=== PATIENT | male | born 1945 | race Two or more races ===

== ENCOUNTER 2023-05-30 16:09 | Emergency (ER) | payer MEDICARE, OTHER ==
[~2023-05-30] VITALS: Ht 177.8 cm; Wt 99.8 kg
[2023-05-30 16:37] LABS: BASOPHILS ABSOLUTE AUTO 0.07 K/mm3 (0.00-0.23); BASOPHILS PERCENT AUTO 1 % (0-2); EOSINOPHILS ABSOLUTE AUTO 0.02 K/mm3 (0.00-0.68); EOSINOPHILS PERCENT AUTO 0 % (0-6); Hematocrit 37.7 % (37.0-53.0); Hemoglobin 12.8 g/dL (13.5-17.5); IMMATURE GRAN ABSOLUTE AUTO 0.04 K/mm3 (0.00-0.10); IMMATURE GRAN PERCENT AUTO 1 % (0-1); LYMPHOCYTES ABSOLUTE AUTO 1.45 K/mm3 (0.84-5.20); LYMPHOCYTES PERCENT AUTO 18 % (21-46); MONOCYTES ABSOLUTE AUTO 0.47 K/mm3 (0.16-1.47); MONOCYTES PERCENT AUTO 6 % (4-13); Mean Corpuscular HGB 30.3 pg (26.0-34.0); Mean Corpuscular Volume 89 fL (80-100); Mean Platelet Volume 8.9 fL (9.1-12.4); NEUTROPHILS PERCENT AUTO 75 % (41-73); Platelet Count 256 K/mm3 (150-400); RDW Coefficient Variation 18.4 % (11.7-14.2); RDW Standard Deviation 59.5 fL (35.1-46.3); Red Blood Cell Count 4.23 M/mm3 (4.30-5.90); White Blood Cell Count 8.25 K/mm3 (4.00-11.30)
[2023-05-30 16:50] LABS: Albumin, Blood 2.7 g/dL (3.4-5.0); Albumin/Globulin Ratio 0.6 (0.8-1.8); Bilirubin, Total 0.6 mg/dL (0.1-1.0); Bun/Creatinine Ratio 22.4 (12.0-20.0); Calcium, Blood 8.6 mg/dL (8.5-10.1); Creatinine, Blood 0.54 mg/dL (0.60-1.20); Globulin, Blood 4.7 g/dL (2.2-4.0); Potassium, Blood 3.2 mmol/L (3.5-5.5); Total Protein, Blood 7.4 g/dL (6.4-8.2)
[2023-05-30] MEDS ORDERED: FAMO20 PO (19:03)
[2023-05-30] MEDS ORDERED: ONDA4ODT MM (19:03)
[2023-05-30] MEDS ORDERED: METO10 PO (19:04)
[2023-05-30 19:47] VITALS: BP 135/74
== END 2023-05-30 19:49 | disposition home or self-care (01) ==
LOC: ER 16:09
PROVIDERS: Student in an Organized Health Care Education/Training Program
DX: R07.9 Chest pain, unspecified (principal); R10.13 Epigastric pain; E87.6 Hypokalemia; R11.2 Nausea with vomiting, unspecified; I45.10 Unspecified right bundle-branch block; D64.9 Anemia, unspecified; E11.9 Type 2 diabetes mellitus without complications; I10 Essential (primary) hypertension
CPT/HCPCS: 71046; 80053; 83690; 83880; 84484; 85025; 93005; 93010; 96374; 96375; 99285-25; A9270; C9113; J2405; J2765

== ENCOUNTER → 2024-10-22 | Outpatient (CLI) | payer MEDICARE, OTHER ==
[~2024-10-22] MED LIST: FAMO20 PO; METO10 PO; ONDA4ODT MM
[2024-10-22 19:14] LABS: BASOPHILS ABSOLUTE AUTO 0.04 K/mm3 (0.00-0.23); BASOPHILS PERCENT AUTO 1 % (0-2); EOSINOPHILS ABSOLUTE AUTO 0.07 K/mm3 (0.00-0.68); EOSINOPHILS PERCENT AUTO 1 % (0-6); Hematocrit 40.4 % (37.0-53.0); Hemoglobin 12.9 g/dL (13.5-17.5); IMMATURE GRAN ABSOLUTE AUTO 0.03 K/mm3 (0.00-0.10); IMMATURE GRAN PERCENT AUTO 0 % (0-1); LYMPHOCYTES ABSOLUTE AUTO 1.03 K/mm3 (0.84-5.20); LYMPHOCYTES PERCENT AUTO 13 % (21-46); MONOCYTES ABSOLUTE AUTO 0.51 K/mm3 (0.16-1.47); MONOCYTES PERCENT AUTO 7 % (4-13); Mean Corpuscular HGB 26.9 pg (26.0-34.0); Mean Corpuscular HGB Conc 31.9 g/dL (31.5-36.5); Mean Corpuscular Volume 84 fL (80-100); Mean Platelet Volume 9.6 fL (9.1-12.4); NEUTROPHILS ABSOLUTE AUTO 5.99 K/mm3 (1.96-9.15); NEUTROPHILS PERCENT AUTO 78 % (41-73); Platelet Count 434 K/mm3 (150-400); RDW Standard Deviation 49.5 fL (35.1-46.3); White Blood Cell Count 7.67 K/mm3 (4.00-11.30)
[2024-10-22 19:33] LABS: Alanine Aminotransfer (ALT/SGP 20 U/L (12-78); Albumin, Blood 2.9 g/dL (3.4-5.0); Albumin/Globulin Ratio 0.5 (0.8-1.8); Alk Phos 102 U/L (50-136); Anion Gap 13 mmol/L (3-11); Aspartate Aminotrans (AST/SGOT 22 U/L (12-37); Bilirubin, Total 0.5 mg/dL (0.1-1.0); Blood Urea Nitrogen 15 mg/dL (8-24); Bun/Creatinine Ratio 24.3 (12.0-20.0); CHOL/HDL RATIO 3.4; CO2, Blood 27 mmol/L (21-32); Calcium, Blood 9.3 mg/dL (8.5-10.1); Chloride, Blood 99 mmol/L (98-108); Cholesterol 158 mg/dL (50-200); Creatinine, Blood 0.62 mg/dL (0.60-1.20); Globulin, Blood 5.5 g/dL (2.2-4.0); Glomerular Filtration Rate 97 (60-); Glucose, Blood 101 mg/dL (70-99); HDL Cholesterol 46 mg/dL (>39); LDL/HDL RATIO 2.1; Low Density Lipoprotein Chol 96 mg/dL (0-110); Potassium, Blood 4.5 mmol/L (3.5-5.5); Sodium, Blood 134 mmol/L (136-145); Total Protein, Blood 8.4 g/dL (6.4-8.2); Triglycerides 81 mg/dL (30-160); Very Low Density Lipoprot Chol 16 mg/dL (6-32)
== END ==
LOC: LAB SHORT 08:45 → LAB 08:45
PROVIDERS: Nurse Practitioner Family
DX: E78.5 Hyperlipidemia, unspecified (principal); I10 Essential (primary) hypertension
CPT/HCPCS: 80053; 80061; 85025

== ENCOUNTER 2024-12-21 19:55 | Inpatient (IN) | payer MEDICARE, OTHER ==
[~2024-12-21] VITALS: Ht 170.2 cm; Wt 87.5 kg
[2024-12-21] MEDS ORDERED: Lactated Ringer's 1,000 ML IV ONE (20:20)
[2024-12-21 20:25] LABS: BASOPHILS ABSOLUTE AUTO 0.04 K/mm3 (0.00-0.23); BASOPHILS PERCENT AUTO 1 % (0-2); EOSINOPHILS ABSOLUTE AUTO 0.13 K/mm3 (0.00-0.68); EOSINOPHILS PERCENT AUTO 2 % (0-6); Hematocrit 38.4 % (37.0-53.0); Hemoglobin 13.3 g/dL (13.5-17.5); IMMATURE GRAN ABSOLUTE AUTO 0.06 K/mm3 (0.00-0.10); IMMATURE GRAN PERCENT AUTO 1 % (0-1); LYMPHOCYTES ABSOLUTE AUTO 1.25 K/mm3 (0.84-5.20); LYMPHOCYTES PERCENT AUTO 16 % (21-46); MONOCYTES ABSOLUTE AUTO 0.67 K/mm3 (0.16-1.47); MONOCYTES PERCENT AUTO 8 % (4-13); Mean Corpuscular HGB 26.2 pg (26.0-34.0); Mean Corpuscular HGB Conc 34.6 g/dL (31.5-36.5); Mean Corpuscular Volume 76 fL (80-100); Mean Platelet Volume 8.8 fL (9.1-12.4); NEUTROPHILS ABSOLUTE AUTO 5.87 K/mm3 (1.96-9.15); NEUTROPHILS PERCENT AUTO 73 % (41-73); Platelet Count 304 K/mm3 (150-400); RDW Coefficient Variation 16.4 % (11.7-14.2); RDW Standard Deviation 44.3 fL (35.1-46.3); Red Blood Cell Count 5.08 M/mm3 (4.30-5.90); White Blood Cell Count 8.02 K/mm3 (4.00-11.30)
[2024-12-21 20:57] LABS: Albumin, Blood 2.3 g/dL (3.4-5.0); Albumin/Globulin Ratio 0.5 (0.8-1.8); Bilirubin, Total 0.9 mg/dL (0.1-1.0); Bun/Creatinine Ratio 22.3 (12.0-20.0); Calcium, Blood 8.7 mg/dL (8.5-10.1); Creatinine, Blood 0.58 mg/dL (0.60-1.20); Globulin, Blood 4.7 g/dL (2.2-4.0); Potassium, Blood 2.9 mmol/L (3.5-5.5)
[2024-12-21 21:29] LABS: Source, Urine Straight Cath
[2024-12-21 21:36] LABS: Appearance, Urine Clear (Clear); Bilirubin, Urine Neg (Neg); Blood, Urine 2+ (Neg); Color, Urine Yellow (P-Yellow); Glucose Qualitative, Urine Neg (Neg); Ketones, Urine 1+ (Neg); Leukocyte Esterase, Urine 1+ (Neg); Nitrite, Urine Neg (Neg); Protein, Urine 2+ (Neg); Specific Gravity, Urine 1.015 (1.003-1.022); Urobilinogen, Urine NORM (Normal)
[2024-12-21 21:50] LABS: Free Thyroxine 1.93 ng/dL (0.70-1.60); Magnesium, Blood 1.5 mg/dL (1.6-2.4)
[2024-12-21 22:01] LABS: Bacteria Mod /hpf; Red Blood Cells, Urine 0-2 /hpf (0-2); Squamous Epithelial Cells Few /hpf (Few)
[2024-12-21 22:16] LABS: Thyroid Stimulating Hormone 3.17 uIU/mL (0.360-4.800)
[2024-12-21] MEDS ORDERED: Potassium Chloride 40 MEQ in NS 250 ML IV ONE (22:25)
[2024-12-21] MEDS ORDERED: CefTRIAXone Sodium 2,000 MG in NS 100 ML IV ONE (22:35)
[2024-12-22] VITALS (26 sets, daily range): BP systolic 80–127; BP diastolic 50–89
[2024-12-22] MEDS ORDERED: Acetaminophen 650 MG Supp PR PRN (00:20)
[2024-12-22] MEDS ORDERED: Mag Sulfate 1 GM/D5% 100ML 100 ML IV STA (00:25)
[2024-12-22] MEDS ORDERED: Acetaminophen 325 MG TABLET PO PRN (00:25)
[2024-12-22 00:33] LABS: Bun/Creatinine Ratio 23.8 (12.0-20.0); Calcium, Blood 8.3 mg/dL (8.5-10.1); Creatinine, Blood 0.55 mg/dL (0.60-1.20); Potassium, Blood 2.9 mmol/L (3.5-5.5)
[2024-12-22] MEDS ORDERED: Sodium Chloride 3% 500 ML IV SCH (01:15)
[2024-12-22 03:49] LABS: Triiodothyronine, Free 2.63 pg/mL (2.18-3.98)
[2024-12-22] MEDS ORDERED: TRIAMCINOLON (04:03)
[2024-12-22] MEDS ORDERED: Clotrimazole-Be15 GM (04:04)
[2024-12-22 05:11] LABS: Percent Saturation 28.6 % (20.0-50.0)
[2024-12-22 05:13] LABS: Bun/Creatinine Ratio 20.6 (12.0-20.0); Calcium, Blood 7.9 mg/dL (8.5-10.1); Creatinine, Blood 0.63 mg/dL (0.60-1.20); Potassium, Blood 3.3 mmol/L (3.5-5.5)
[2024-12-22] MEDS ORDERED: Potassium Chloride 40 MEQ in NS 250 ML IV ONE (05:25)
[2024-12-22] MEDS ORDERED: NS 500 ML IV ONE (05:25)
--- NOTE | 2024-12-22 06:37 | NUR ---
SHIFT SUMMARY: PT ARRIVED TO ICU 13 AT 0342 THIS MORNING. PT ACCOMPANIED BY SON. PT ORIENTED TO SELF, COMMUNICATING IN INUPIAT LANGUAGE (LEOPOLDO) W/SON. PT DOES NOT SPEAK [place]. PT CONFUSED, PER SON, HE BELIEVES HE IS AT HOME. ON ARRIVAL, PT ATTEMPTED TO GET OUT OF BED, PULLING AT CORDS. HE WAS EASILY RE-DIRECTABLE BY SON WHO REASSURED HIM. PT ADMITTED FOR HYPONATREMIA, SODIUM OF 117. ON ARRIVAL PT HAD 3% NACL INFUSING AT 30ML/HR. PERIPHERAL IV CHECKED, PATENT AND BLOOD RETURN OBSERVED. INFUSION CONTINUED. PT MOVES ALL EXTREMITIES INDEPENDENTLY. FOLLOWS COMMANDS. HR SINUS, 60-80S. SBP SOFT. MAPS INITIALLY >65, SHORTLY AFTER ARRIVAL, MAP STARTED DROPPING BELOW 65. LABS RESULTED WELL. K+ 3.3. SODIUM 120. DR ZAMBRANO CALLED. ORDERS OBTAINED- SEE EMAR. INTERVENTIONS WERE IMPLEMENTED AND PTS SBP AND MAPS WERE RECEPTIVE TO INTERVENTIONS. LUNGS CLEAR. PT ON RA W/ SATS >93%. PER SON, PT DOES NOT USE OXYGEN AT HOME. PT LAST BM UNKNOWN. BOWEL TONES HYPOACTIVE X4. ABD MOD DISTENDED, NONTENDER ON PALPATION. CORBETT CATH IN PLACE,PATENT, DRAINING YELLOW URINE TO GRAVITY. PT HAS TWO PERIPHERAL IVS IN MENG AND RHAND. K+ INFUSING AT THIS TIME. THIS RN TO CONTINUE TO MONITOR AND REPORT TO ONCOMING RN.
[2024-12-22] MEDS ORDERED: NS 1,000 ML IV SCH (08:25)
[2024-12-22 08:43] LABS: Bun/Creatinine Ratio 20.5 (12.0-20.0); Calcium, Blood 8.4 mg/dL (8.5-10.1); Creatinine, Blood 0.58 mg/dL (0.60-1.20); Potassium, Blood 3.5 mmol/L (3.5-5.5)
[2024-12-22] MEDS ORDERED: Tamsulosin HCl 0.4 MG Cap PO SCH (09:00)
[2024-12-22] MEDS ORDERED: Enoxaparin 40 MG/0.4 ML SYR SC SCH (09:00)
[2024-12-22] MEDS ORDERED: Lactobacil 2-S.Thermo-Bifido 1 1 Cap PO SCH (09:00)
[2024-12-22 13:46] LABS: Bun/Creatinine Ratio 18.5 (12.0-20.0); Calcium, Blood 8.6 mg/dL (8.5-10.1); Creatinine, Blood 0.59 mg/dL (0.60-1.20); Potassium, Blood 3.6 mmol/L (3.5-5.5)
[2024-12-22] MEDS ORDERED: Thiamine HCl 500 MG in NS 100 ML IV SCH (16:27)
--- NOTE | 2024-12-22 17:36 | NUR ---
SHIFT SUMMARY NO ACUTE CHANGES THIS SHIFT. PT HAS REMAINED CONFUSED AND WITH NONSENSICAL SPEECH WHEN AWAKE PER PT GRANDSON. PT GRANDSON AT BEDSIDE THROUGHOUT THE SHIFT. PT HAS DENIED PAIN OR DISCOMFORT. VITAL SIGNS STABLE. PT ON ROOM AIR. PIV'S IN PLACE WITH NS INFUSING TKO AT THIS TIME. CORBETT REMAINS IN PLACE WITH LARGE AMOUNT OF CLEAR YELLOW URINE OUTPUT NOTED. SBW RESTRAINTS REMAIN IN PLACE, PT CONTINUES TO BE NOT REDIRECTABLE WHEN PULLING AT LINES/TUBES AND ATTEMPTING OOB. WILL CONTINUE TO MONITOR AND REPORT OFF TO ONCOMING RN.
[2024-12-22] MEDS ORDERED: NS 250 ML IV PRN (20:45)
[2024-12-22] MEDS ORDERED: CefTRIAXone Sodium 1,000 MG in NS 100 ML IV SCH (21:00)
[2024-12-23 01:23] VITALS: BP 84/60
[2024-12-23 01:24] VITALS: BP 94/61
[2024-12-23] MEDS ORDERED: Midodrine 5 MG Tab PO SCH (02:00)
[2024-12-23 04:49] VITALS: BP 95/59
[2024-12-23] MEDS ORDERED: Dextrose 50% 50 ML Syringe IV ONE (05:55)
--- NOTE | 2024-12-23 06:20 | NUR ---
PT TRANSFERED FROM ICU TO [facility] DURING THIS SHIFT. PATIENT ALERT TO SELF; NPO.PATIENTS PRIMARY LANGUAGE IS [place]DO. INTERPERTATION PHONE IN ROOM FOR TRANSLATION. PATIENT HAD TWO EPISODES WHILE ASLEEP THAT HIS OXYGEN DROPPED TO 77% AND HEART RATE WENT UP TO THE 120-130S, BLOOD PRESSURES ALSO RUNNING SOFT (SEE CHART). DR ZAMBRANO WAS NOTIFIED OF THIS. PATIENT WAS PUT ON 2 L NC AND IS SATING 93-96%. MIDODRINE 5 MG WAS ORDERED AND GIVEN. CORBETT WAS REMOVED PER PROTOCOL. PATIENT BLOOD GLUCOSE WAS [address] ZAMBRANO WAS NOTIFIED AND PER TELEPHONE ORDER 1 AMP OF D50 WAS ORDERED AND GIVEN. PT IS CURRENTLY RESTING IN BED AND ABLE TO TURN SELF. BED IS IN LOW POSITION WITH WHEELS LOCKED AND BED ALARM ON. CALL LIGHT IS WITHIN REACH.
[2024-12-23 06:38] LABS: Bun/Creatinine Ratio 22.5 (12.0-20.0); Calcium, Blood 8.4 mg/dL (8.5-10.1); Creatinine, Blood 0.76 mg/dL (0.60-1.20); Potassium, Blood 3.5 mmol/L (3.5-5.5)
[2024-12-23 08:04] VITALS: BP 108/67
[2024-12-23 16:49] VITALS: BP 109/69
--- NOTE | 2024-12-23 18:30 | NUR ---
SHIFT SUMMARY PATIENT ALERT AND INTERACTIVE. LANGUAGE BARRIER, PATIENT DOES NOT SPEAK [place]. FAMILY AT BEDSIDE BUT CONTINUE TO HAVE SOME LANGUAGE BARRIERS. PATIENT TOO CONFUSED TO USE HEALTH AND WELLNESS COORDINATOR PHONE. PATIENT INCONTINENT MULTIPLE TIMES DURING SHIFT. PATIENT ABLE TO AMBULATE TO BR AT END OF SHIFT AND VOID IN THE TOILET. PATIENT NOT WANTING STAFF IN BR WITH HIM DURING THAT TIME. PATIENT COOPERATIVE WITH TAKING MEDICATIONS AND WORKING WITH STAFF. PATIENT NOTED TO HAVE A PSORIATIC LOOKIING RASH ON SCALP AND R THIGH. FAMILY REQUESTING LOTION TO BE APPLIED. PATIENT EATING AND DRINKING WITH NO DIFFICULTY NOTED. PATIENT SELECTIVE ON WHAT HE EATS. FAMILY ENCOURAGED TO BRING IN FOODS PATIENT MIGHT PREFER.
--- NOTE | 2024-12-23 18:34 | NUR ---
Pt ambulated to bathroom last rounds with a stand by assist. All needs are met and room is clean. Call light is within reach and the bed alarm is on. Whiteboard is updated.
[2024-12-23 19:25] VITALS: BP 102/70
--- NOTE | 2024-12-24 03:17 | NUR ---
BUSINESS SYSTEM MANAGER SUMMARY VSS. DX HYPONATREMIA. IVF OF NS INFUSING KVO WITH ANTIBIOTICS AND IV MEDS INFUSING AT INTERVALS - SEE MAR FOR DETAILS. SON AT BEDSIDE, TO ASSIST WITH COMMUNICATON PT SPEAKS ONLY HIS APACHE LANGUAGE FROM [place] AND SON CAN TRANSLATE. UP WITH ASSISST TO BATHROOM. CONTINUOUS PULSE OX SATS IN THE 90'S. TAKES PILLS WITH WATER. OCCASIONAL LOUD INTERACTIIONS, OTHERWISE COMPLIANT WITH TREATMENT. HAS BEEN RESTING QUIETLY WITH OCCASIONAL INTERRUPTION. CALL LIGHT IN REACH, ARILS UP X 2 AND BED IN LOW POSITION FOR SAFETY. WILL CONT TO MONITOR.
--- NOTE | 2024-12-24 03:54 | NUR ---
PT UP TO BATHROOM, HAD PULLED OUT LAST IV. NO NOTED S/S DISTRESS BUT EASILY AGITATED.
[2024-12-24 04:03] VITALS: BP 134/78
[2024-12-24 07:19] VITALS: BP 115/63
[2024-12-24 08:02] LABS: TSH RECEPTOR ANTIBODY <1.10 IU/L (<=1.75)
[2024-12-24 09:27] LABS: Bun/Creatinine Ratio 22.2 (12.0-20.0); Calcium, Blood 8.1 mg/dL (8.5-10.1); Creatinine, Blood 0.63 mg/dL (0.60-1.20); Potassium, Blood 3.3 mmol/L (3.5-5.5)
--- NOTE | 2024-12-24 13:25 | NUR ---
PATIENT PULLED X2 IV'S BEFORE 11OO THIS SHIFT. DOC OKAYED TO LEAVE IV OUT. PATIENT DECLINING TO USE PHONE CHILDREN'S AUTHOR, TOLD CHILDREN'S AUTHOR HE DID NOT WANT TO SPEAK TO HIM. FAMILY IN ROOM, HAVE NOT REDIRECTED UNSAFE BEHAVIORS OF THIS TIME.
[2024-12-24 15:07] VITALS: BP 146/78
--- NOTE | 2024-12-24 15:35 | NUR ---
SHIFT SUMMARY PATIENT ABLE TO AMBULATE TO BATHROOM THIS SHIFT. DOES NOT ADHERE TO SAFETY CONCERNS. PULLED TWO IV'S THIS SHIFT. DECLINES TO SPEAK WITH INTERPERTER OVER THE PHONE. FAMILY IN ROOM AT TIMES, STATE PATIENT MOSTLY SPEAKS NONSENISCALLY. DECLINING TO HAVE WET CLOTHING CHANGED, SON WILL ADRESS WHEN BACK IN ROOM. EATING AND DRINKING WELL. UNABLE TO ACCURATELY MEASURE OUTS, PATIENT WILL NOT HAVE MEASURING DEVICE IN TOILET, WON'T USE URINAL. CALL LIGHT IN REACH, DOESN'T USE.
[2024-12-24 18:16] VITALS: BP 152/80
[2024-12-24 19:35] VITALS: BP 124/87
[2024-12-24] MEDS ORDERED: Cefpodoxime Proxetil 200 MG Tab PO SCH (21:00)
--- NOTE | 2024-12-25 03:29 | NUR ---
FORENSIC CHEMIST SUMMARY VSS. FAMILY EMBERS AT BEDSIDE MOST OF THE SHIFT TO ASSIST IN TRANSLATION PT SPEAKS LANGUAGE FROM HIS HOMELAND OF [place] AND HAS APPARENT DIFFICULTIES IN UNDERSTANDING [place]. TOLERATING DIET BETTER. HAD PULLED OUT ALL IV'S. NOTIFIED AND IV MEDS DISCONTINUED AND MADE ORAL, (SEE MAR). UP AD EMELINA WITH OBSERVATION TO USE BATHROOM, ABLE TO REPOSITION SELF IN BED WITHOUT ASSIST. HAS BEEN RESTING QUIETLY WITH FEW INTERRUPTIONS. CALL LIGHT IN REACH, RAILS UP X 2 AND BED IN LOW POSITION FOR SAFETY. WILL CONTINUE TO MONITOR
[2024-12-25 05:25] VITALS: BP 163/87
[2024-12-25 06:11] LABS: Hematocrit 34.1 % (37.0-53.0); Hemoglobin 11.1 g/dL (13.5-17.5); Mean Corpuscular HGB 26.2 pg (26.0-34.0); Mean Corpuscular HGB Conc 32.6 g/dL (31.5-36.5); Mean Corpuscular Volume 81 fL (80-100); Mean Platelet Volume 9.4 fL (9.1-12.4); Platelet Count 290 K/mm3 (150-400); RDW Coefficient Variation 18.1 % (11.7-14.2); RDW Standard Deviation 52.3 fL (35.1-46.3); Red Blood Cell Count 4.23 M/mm3 (4.30-5.90); White Blood Cell Count 6.62 K/mm3 (4.00-11.30)
[2024-12-25 06:39] LABS: Albumin, Blood 2.4 g/dL (3.4-5.0); Anion Gap 7 mmol/L (3-11); Blood Urea Nitrogen 11 mg/dL (8-24); Bun/Creatinine Ratio 17.6 (12.0-20.0); CO2, Blood 30 mmol/L (21-32); Calcium, Blood 8.2 mg/dL (8.5-10.1); Chloride, Blood 101 mmol/L (98-108); Creatinine, Blood 0.63 mg/dL (0.60-1.20); Glomerular Filtration Rate 96 (60-); Glucose, Blood 86 mg/dL (70-99); Magnesium, Blood 1.9 mg/dL (1.6-2.4); Phosphorus, Blood 3.2 mg/dL (2.5-4.9); Potassium, Blood 3.5 mmol/L (3.5-5.5); Sodium, Blood 134 mmol/L (136-145)
[2024-12-25 08:29] VITALS: BP 143/87
[2024-12-25] MEDS ORDERED: Thiamine HCl 100 MG Tab PO SCH (09:00)
[2024-12-25] MEDS ORDERED: Multivitamins 1 Tab PO SCH (09:00)
[2024-12-25 14:43] VITALS: BP 142/77
[2024-12-25 17:09] VITALS: BP 133/77
--- NOTE | 2024-12-25 18:02 | NUR ---
SHIFT SUMMARY PATIENT AMBULATING IN ROOM SBA TO INDEPENDENT. DECLINING TO USE PHONE TILE ROOFER. ACCEPTING OF MEDICATIONS. WILL NOT ALLOW OUTPUT MEASURING. FAMILY IN AND OUT OF ROOM ALL SHIFT, BRINGING IN FOOD FOR PATIENT. CALL LIGHT IN REACH, DOES NOT USE.
[2024-12-25 19:23] VITALS: BP 138/77
--- NOTE | 2024-12-26 03:22 | NUR ---
CORRECTIONS NURSE SUMMARY VSS. HAS BEEN QUIET, MOSTLY LYING IN BED THIS SHIFT. AM RN REPORTED PT HAD BEEN EATING WELL OF FOOD BROUGHT IN BY FAMILY HE PREFERS HOME FOOD TO HOSPITAL FOOD. SON WAS AT BEDSIDE PART OF THE EVENING BUT LEFT AFTER PT WAS RESTING QUIETLY IN BED. VOICED HE WOULD RETURN IN THE AM. PT ASAYMPTOMATIC. UP AD EMELINA WITH OBSERVATION/WALKER. ABLE TO REPOSITION SELF IN BED WITHOUT ASSIST. CALL LIGHT IN REACH, RAILS UP X 2 AND BED IN LOW POSITON FOR SAFETY. WILL CONTINUE TO MONITOR.
[2024-12-26 06:49] LABS: Albumin, Blood 2.4 g/dL (3.4-5.0); Anion Gap 7 mmol/L (3-11); Blood Urea Nitrogen 11 mg/dL (8-24); Bun/Creatinine Ratio 19.4 (12.0-20.0); CO2, Blood 30 mmol/L (21-32); Calcium, Blood 8.3 mg/dL (8.5-10.1); Chloride, Blood 102 mmol/L (98-108); Creatinine, Blood 0.57 mg/dL (0.60-1.20); Glomerular Filtration Rate 99 (60-); Glucose, Blood 90 mg/dL (70-99); Phosphorus, Blood 2.9 mg/dL (2.5-4.9); Potassium, Blood 3.5 mmol/L (3.5-5.5); Sodium, Blood 135 mmol/L (136-145)
[2024-12-26 07:52] VITALS: BP 146/80
[2024-12-26 13:56] VITALS: BP 148/78
[2024-12-26] MEDS ORDERED: CEFP200 PO (14:05)
[2024-12-26] MEDS ORDERED: TAMS.4ER PO (14:05)
[2024-12-26] MEDS ORDERED: MULVITA PO (14:05)
--- NOTE | 2024-12-26 15:04 | NUR ---
PT DISCHARGE REVIEWED WITH PT AND SON. SON VERBALIZED INDERSTANDING MEDS AND INST. NO IV NO TELE. PT WHEELED TO DOOR BY AIDE AT 1500
== END 2024-12-26 15:00 | disposition home or self-care (01) | DRG 640 ==
LOC: ER 19:55 → MEDS 12-22 00:19 → ICUE 12-22 00:19 → MEDS 12-22 20:57
PROVIDERS: Internal Medicine; Student in an Organized Health Care Education/Training Program; ADMIT Student in an Organized Health Care Education/Training Program
DX: E87.1 Hypo-osmolality and hyponatremia (principal); G92.8 Other toxic encephalopathy; N13.6 Pyonephrosis; K40.90 Unilateral inguinal hernia, without obstruction or gangrene, not specified as recurrent; I10 Essential (primary) hypertension; D50.9 Iron deficiency anemia, unspecified; E87.6 Hypokalemia; E11.9 Type 2 diabetes mellitus without complications; I77.1 Stricture of artery; F10.11 Alcohol abuse, in remission; Z79.1 Long term (current) use of non-steroidal anti-inflammatories (NSAID); Z79.899 Other long term (current) drug therapy; Z85.46 Personal history of malignant neoplasm of prostate
CPT/HCPCS: 36415; 36416; 51702; 74177; 76870; 80048; 80053; 80069; 81001; 82140; 82533; 82728; 82947; 83520; 83540; 83550; 83605; 83690; 83735; 83880; 83930; 83935; 84300; 84439; 84443; 84481; 84484; 85025; 85027; 86850; 86900; 86901; 87040; 87086; 93005; 93010; 94762; 96361-59; 96365-59; 96366-59; 96368; 99285-25; A9270; J0696; J1650; J3411; J3475; J3480; J7030; J7040; J7050; J7120; Q9967

== ENCOUNTER → 2025-03-01 | Outpatient (CLI) | payer MEDICARE, OTHER ==
[~2025-03-01] MED LIST changes: +CEFP200 PO; +Clotrimazole-Be15 GM; +MULVITA PO; +TAMS.4ER PO; +TRIAMCINOLON
[2025-03-01 16:06] LABS: Anion Gap 6.0 mmol/L (3-11); Blood Urea Nitrogen 11.0 mg/dL (8-24); CO2, Blood 29.0 mmol/L (21-32); Calcium, Blood 9.5 mg/dL (8.5-10.1); Chloride, Blood 104.0 mmol/L (98-108); Creatinine, Blood 0.59 mg/dL (0.60-1.20); Glucose, Blood 97.0 mg/dL (70-99); Potassium, Blood 4.4 mmol/L (3.5-5.5); Sodium, Blood 135.0 mmol/L (136-145)
== END | disposition home or self-care (01) ==
LOC: LAB 11:52 → LAB SHORT 11:52
PROVIDERS: Nurse Practitioner Family
DX: I10 Essential (primary) hypertension (principal)
CPT/HCPCS: 80048

== ENCOUNTER → 2025-06-19 | Outpatient (CLI) | payer MEDICARE, OTHER ==
[2025-06-19 11:12] LABS: BASOPHILS ABSOLUTE AUTO 0.04 K/mm3 (0.00-0.23); BASOPHILS PERCENT AUTO 1 % (0-2); EOSINOPHILS ABSOLUTE AUTO 0.13 K/mm3 (0.00-0.68); EOSINOPHILS PERCENT AUTO 2 % (0-6); Hematocrit 40.3 % (37.0-53.0); Hemoglobin 12.9 g/dL (13.5-17.5); IMMATURE GRAN ABSOLUTE AUTO 0.02 K/mm3 (0.00-0.10); IMMATURE GRAN PERCENT AUTO 0 % (0-1); LYMPHOCYTES ABSOLUTE AUTO 1.33 K/mm3 (0.84-5.20); LYMPHOCYTES PERCENT AUTO 20 % (21-46); MONOCYTES ABSOLUTE AUTO 0.44 K/mm3 (0.16-1.47); MONOCYTES PERCENT AUTO 7 % (4-13); Mean Corpuscular HGB Conc 32.0 g/dL (31.5-36.5); Mean Corpuscular Volume 86 fL (80-100); NEUTROPHILS ABSOLUTE AUTO 4.56 K/mm3 (1.96-9.15); NEUTROPHILS PERCENT AUTO 70 % (41-73); NRBC ABSOLUTE 0.00 K/mm3 (0.00-0.02); NRBC Auto 0.0 /100 WBC (0.0-0.2); Platelet Count 387 K/mm3 (150-400); RDW Coefficient Variation 17.1 % (11.7-14.2); RDW Standard Deviation 53.6 fL (35.1-46.3)
[2025-06-19 11:51] LABS: Anion Gap 8 mmol/L (3-11); Blood Urea Nitrogen 13 mg/dL (8-24); CHOL/HDL RATIO 3.9; CO2, Blood 27 mmol/L (21-32); Calcium, Blood 8.9 mg/dL (8.5-10.1); Chloride, Blood 104 mmol/L (98-108); Cholesterol 154 mg/dL (50-200); Creatinine, Blood 0.56 mg/dL (0.60-1.20); Glucose, Blood 95 mg/dL (70-99); HDL Cholesterol 39 mg/dL (>39); LDL/HDL RATIO 2.5; Low Density Lipoprotein Chol 97 mg/dL (0-110); Potassium, Blood 3.8 mmol/L (3.5-5.5); Sodium, Blood 135 mmol/L (136-145); Triglycerides 88 mg/dL (30-160); Very Low Density Lipoprot Chol 17 mg/dL (6-32)
== END ==
LOC: LAB SHORT 09:57 → LAB 09:57
PROVIDERS: Nurse Practitioner Family
DX: E78.5 Hyperlipidemia, unspecified (principal); I10 Essential (primary) hypertension
CPT/HCPCS: 80048; 80061; 85025